=== PATIENT | female | born 1965 | race Caucasian/White ===

== ENCOUNTER → 2017-01-06 | Outpatient (CLI) | payer BC ==
[~2017-01-06] MED LIST: ASPIRIN 81MG TA81 MG PO; AUGMENTIN1 TA2 PO; CELEXA40 MG PO; DIFLUCAN150 MG PO; LEXAPRO 10 MG T10 MG PO; LEXAPRO 20 MG T20 MG PO; LISINOPRIL/HCTZ1 TA3 FT; LOVASTATIN20 MG PO; MAXZIDE 25 MG-31 TAB PO; MOBIC15 MG PO; NICODERM C21 MG/24 H TD; NITROGLYCERIN0.4 M1 SL; OMEPRAZOLE40 MG PO; PERCOCET 5/3251 EACH PO; PREDNISONE 20MG20 MG PO; SIMVASTATIN10 MG PO; TRAMADOL 50MG T50 MG PO
[2017-01-06 08:17] LABS: LYMPH # 1.9 K/mm3 (0.7-4.5)
[2017-01-06 09:07] LABS: HEMOGLOBIN 15.4 g/dL (12.2-16.2)
[2017-01-06 09:15] LABS: BUN 10 mg/dL (7-18)
[2017-01-06 09:20] LABS: GFR (ESTIMATED) 58 ML/MIN (59-)
== END ==
LOC: LAB 07:35
PROVIDERS: Nurse Practitioner Family
DX: R00.2 Palpitations (principal); E78.5 Hyperlipidemia, unspecified; E53.8 Deficiency of other specified B group vitamins